=== PATIENT | male | born 1995 | race Caucasian/White ===

== ENCOUNTER 2020-10-27 15:10 | Outpatient (RCR) | payer OTHER | END 2020-10-28 14:37 | disposition home or self-care (01) | LOC: WSOH 15:10 | DX: S67.02XA Crushing injury of left thumb, initial encounter (principal); Y99.0 Civilian activity done for income or pay ==

== ENCOUNTER 2024-02-28 06:55 | Emergency (ER) | payer BC ==
[~2024-02-28] VITALS: Ht 172.7 cm; Wt 102.3 kg
[2024-02-28 07:02] VITALS: BP 132/94; TEMP 98.8
[2024-02-28] MEDS ORDERED: NORCO 325 MG-51 TAB PO (07:44)
[2024-02-28] MEDS ORDERED: MOTRIN 800800 MG/TAB PO (07:44)
[2024-02-28] MEDS ORDERED: CRUTCHES MC (08:14)
[2024-02-28 08:50] VITALS: PULSE 82
== END 2024-02-28 08:50 | disposition home or self-care (01) ==
LOC: COL.ER 06:55
DX: S82.142A Displaced bicondylar fracture of left tibia, initial encounter for closed fracture (principal); V18.4XXA Pedal cycle driver injured in noncollision transport accident in traffic accident, initial encounter; Y93.55 Activity, bike riding; Y92.410 Unspecified street and highway as the place of occurrence of the external cause
CPT/HCPCS: 31289; L1830; L1846